=== PATIENT | male | born 1975 | race Hispanic/Latino ===

== ENCOUNTER 2016-12-09 18:26 | Emergency (ER) | payer OTHER ==
[~2016-12-09] VITALS: Ht 180.3 cm; Wt 113.4 kg
[~2016-12-09 18:26] MED LIST: AUGMENTIN 875875 MG PO; HYDROCODONE/ACE1 TA1 PO; INDOMETHACIN50 MG PO; OXYCODONE5 M1 PO
[2016-12-09 18:42] VITALS: BP 126/79
[2016-12-09] MEDS ORDERED: ALLOPURINOL100 M1 PO (20:13)
[2016-12-09] MEDS ORDERED: SUBOXONE 2 MG-1 EACH SL (20:13)
[2016-12-09] MEDS ORDERED: INDOMETHACIN50 M1 PO (20:13)
--- NOTE | 2016-12-09 20:18 | ED UPPER/LOWER EXTREMITY COMPL ---
History of Present Illness General Chief Complaint: Upper Extremity Problem Stated Complaint: SWOLLEN/SORE RT ELBOW Source: patient Exam Limitations: no limitations Vital Signs & Intake/Output Vital Signs & Intake/Output Vital Signs Date Time Temp Pulse Resp B/P B/P Pulse O2 O2 Flow FiO2 Mean Ox Delivery Rate 12/09 1842 99.1 99 15 126/79 98 Room Air Room Air ED Intake and Output 12/10 0000 12/09 1200 Intake Total Output Total Balance Patient 250 lb Weight Weight Reported by Patient Measurement Method Allergies Coded Allergies: No Known Allergies (12/09/16) Reconcile Medications Allopurinol 100 MG TABLET 1 TAB PO DAILY GOUT (Reported) Buprenorphine HCl/Naloxone HCl (Suboxone 2 MG-0.5 MG Sl Film) 2 MG-0.5 MG FILM 1 STR SL DAILY MENTAL HEALTH (Reported) Indomethacin 50 MG CAPSULE 1 CAP PO TID PRN GOUT (Reported) with food Ketorolac Tromethamine 10 MG TABLET 1 TAB PO TID PRN PAIN RECEIVED IM IN ER Triage Note: PT TO ED FOR R SWOLLEN ELBOW THAT STARTED TWO DAYS AGO WITHOUT TRAUMA OR INJURY. ELBOW IS SWOLLEN, +CMS. Triage Nurses Notes Reviewed? yes Onset: Gradual Duration: constant Timing: recent history Severity: severe Severity Numbers: 7 HPI: Patient is a 41-year-old male who presents emergency room stating that on 4 days ago patient was working a lot using a hammer for the entire day where he noted and following day pain and swelling to the posterior aspect of patient's elbow. Patient denies any mechanism of injury or trauma. Patient has been taking ibuprofen with minimal relief of symptoms. Patient is right arm dominant. Denies any IV drug use. Denies any fever chills. Denies any distal upper extremity swelling or paresthesia. (AMINAH EDWARDS,KYRA) Past History Travel History Traveled to [place] past 21 day No Medical History Any Pertinent Medical History? none Neurological: NONE EENT: NONE Cardiovascular: NONE Respiratory: NONE Gastrointestinal: NONE Hepatic: NONE Renal: NONE Musculoskeletal: NONE Psychiatric: NONE Endocrine: NONE Blood Disorders: NONE Cancer(s): NONE DIAMOND SANDER/Reproductive: NONE Pneumonia Vaccine: 07/31/12 Influenza Vaccine: 07/30/12 Surgical History Surgical History: non-contributory Psychosocial History Who do you live with Spouse Services at Home NONE What is your primary language Spanish Tobacco Use: Never used ETOH Use: denies use Illicit Drug Use: denies illicit drug use Family History Hx Contributory? No (KYRA HULL) Review of Systems Review of Systems Constitutional: Reports: no symptoms. EENTM: Reports: no symptoms. Respiratory: Reports: no symptoms. Cardiovascular: Reports: no symptoms. Gastrointestinal/Abdominal: Reports: no symptoms. Genitourinary: Reports: no symptoms. Musculoskeletal: Reports: see HPI, joint pain, joint swelling. Skin: Reports: no symptoms. Neurological/Psychological: Reports: no symptoms. Hematologic/Endocrine: Reports: no symptoms. Immunological: Reports: no symptoms. All Other Systems: Reviewed and Negative (KYRA HULL) Physical Exam Physical Exam General Appearance: no apparent distress, alert Neurologic/Tendon: normal sensation, normal motor functions, normal tendon functions, responds to pain, no evidence tendon injury, no pulse deficit Skin: intact, normal color, warm/dry Comments: Well-developed well-nourished no apparent distress. HEENT: Atraumatic, extraocular motion intact Neck: Supple, no lymphadenopathy Back: Nontender Respiratory: No respiratory distress Extremities: Right elbow noted olecranon swelling and point tenderness to the olecranon and triceps tendon full active range of motion noted with mild pain with elbow flexion, nontender medial and lateral epicondyle No erythema no warmth 5/5 resisted range of motion noted with moderate pain with elbow extension 5 out of 5 resisted range of motion with no pain with elbow flexion Right wrist nontender full active range of motion normal inspection Right upper extremity no distal hand or forearm swelling dermatomes intact radial pulse +2 Neuro: Alert and oriented x3 Psych: Mood affect normal, normal memory normal judgment. (KYRA HULL) Progress Differential Diagnosis: arterial insufficiency, compartment syndrome, contusion, dislocation, DVT, fracture, gout, septic arthritis, sprain, tendon injury Plan of Care: Due to history of present illness and exam findings or suspicion of right triceps tendinitis in which pain is reproduced with right elbow extension and patient was hammering significantly on prior to onset of symptoms where he states that he does not normally perform this job at work. No concerns of septic arthritis or DVT Patient denies any mechanism of injury and there is no emergent warranting of x- rays for patients tendinitis concern (KYRA HULL) Departure Departure Disposition: HOME OR SELF CARE Condition: Stable Clinical Impression Primary Impression: Right elbow pain Secondary Impressions: Tendinitis of right triceps Referrals: SHAILA DE LEÓN MD PATIENT HAS NO PRIMARY CARE DR (PCP/Family) Additional Instructions: As discussed begin icing the area directly 20 minutes every 2 hours. Begin the prescription ketorolac for pain and inflammation. Begin using the Elio wrap for swelling. If no better in 5 days follow-up with orthopedic Dr. De León. If symptoms worsen return to emergency room Prescriptions waiting at [facility] Departure Forms: Customer Survey General Discharge Information Prescriptions: Current Visit Scripts Ketorolac Tromethamine 1 TAB PO TID PRN PAIN #15 TAB RECEIVED IM IN ER (KYRA HULL) PA/COMMERCIAL BAKING TEACHER Co-Sign Statement Statement: ED Attending supervision documentation- [] I saw and evaluated the patient. I have also reviewed all the pertinent lab results and diagnostic results. I agree with the findings and the plan of care as documented in the PA's/COMMERCIAL BAKING TEACHER's documentation. [x] I have reviewed the ED Record and agree with the PA's/COMMERCIAL BAKING TEACHER's documentation. [] Additions or exceptions (if any) to the PAs/COMMERCIAL BAKING TEACHER's note and plan are summarized below: [] (NICHOLE MADRIGAL,HAJA Byrd)
[2016-12-09] MEDS ORDERED: KETOROLAC TROME10 M1 PO (20:30)
== END 2016-12-09 20:42 ==
LOC: ERH 18:26
DX: M77.9 Enthesopathy, unspecified (principal)
CPT/HCPCS: 96372; J1885